=== PATIENT | male | born 1975 | race Two or more races ===

== ENCOUNTER 2022-04-25 03:23 | Inpatient (IN) | payer MEDICAID, OTHER ==
[~2022-04-25] VITALS: Ht 175.3 cm; Wt 90.0 kg
[~2022-04-25 03:23] MED LIST: FURO20 PO; METF-444 PO; POTASSIUM
[2022-04-25 04:16] LABS: BASOPHILS % (AUTO) 0.7 % (0.0-2.0); EOSINOPHILS % (AUTO) 1.9 % (1.0-6.0); HEMATOCRIT 40.3 % (41-53); HEMOGLOBIN 12.6 g/dL (13.5-17.5); LYMPHOCYTES # (AUTO) 1.7 K/uL (1.0-4.8); LYMPHOCYTES % (AUTO) 21.6 % (22.0-44.0); MEAN CORPUSCULAR HEMOGLOBIN 26.7 pg (26.0-34.0); MEAN CORPUSCULAR HGB CONC 31.3 G/dL (31.0-37.0); MEAN CORPUSCULAR VOLUME 85 fL (80-100); MONOCYTES # (AUTO) 0.8 K/uL (0.1-1.0); MONOCYTES % (AUTO) 9.9 % (2.0-9.0); NEUTROPHILS # (AUTO) 5.3 K/uL (1.8-7.7); NEUTROPHILS % (AUTO) 65.9 % (40.0-70.0); PLATELET COUNT (AUTO) 199 K/uL (150-450); RED BLOOD CELL COUNT(AUTO) 4.73 MIL/uL (4.50-5.90); RED CELL DISTRIBUTION WIDTH 20.5 % (11.5-14.5)
[2022-04-25 04:28] LABS: CALCIUM, TOTAL 8.9 mg/dL (8.8-10.5); CREATININE 1.54 mg/dL (0.60-1.30); POTASSIUM 4.4 mmol/L (3.5-5.1)
[2022-04-25 04:34] LABS: ALBUMIN 3.3 g/dL (3.4-5.0); BILIRUBIN,TOTAL 0.9 mg/dL (0.1-1.0); TOTAL PROTEIN, SERUM 7.6 g/dL (6.4-8.2)
[2022-04-25 04:36] LABS: LACTIC ACID 1.6 mmol/L (0.4-2.0)
[2022-04-25 05:20] LABS: COVID AG,FIA SOURCE NASOPHARYNGEAL
[2022-04-25] MEDS ORDERED: ASPIRIN 325 MG TABLET PO ONE (06:00)
[2022-04-25] MEDS ORDERED: FUROSEMIDE 40 MG/4 ML VIAL IVP ONE (06:00)
[2022-04-25] MEDS ORDERED: ACETAMINOPHEN 325 MG TABLET PO PRN ×2 (06:00→18:45)
[2022-04-25] MEDS ORDERED: ONDANSETRON HCL 4 MG/2 ML VIAL IVP PRN ×2 (06:00→18:45)
[2022-04-25] MEDS ORDERED: 0.9% SODIUM CHLORIDE 10 ML SYRINGE IVP PRN (06:00)
[2022-04-25] MEDS ORDERED: NITROGLYCERIN 2% (1 GM=INCH) OINTMENT PACKET TP ONE (06:00)
[2022-04-25 09:08] LABS: APPEARANCE,URINE CLEAR (CLEAR); BILIRUBIN,URINE NEGATIVE (NEGATIVE); GLUCOSE, URINE (UA) NEGATIVE (NEGATIVE); KETONES,URINE NEGATIVE (NEGATIVE); LEUKOCYTE ESTERASE ,URINE NEGATIVE (NEGATIVE); NITRATE,URINE NEGATIVE (NEGATIVE); OCCULT BLOOD,URINE NEGATIVE (NEGATIVE); PH,URINE 5.5 (5.0-8.0); PROTEIN,URINE 30-70 mg/dL (NEGATIVE); UROBILINOGEN,URINE <=1.0 mg/dL (<=1.0)
[2022-04-25 09:13] LABS: AMPHET/METH SCREEN,URINE NEGATIVE (NEGATIVE); BARBITURATE SCREEN, URINE NEGATIVE (NEGATIVE); BENZODIAZEPINES SCREEN,URINE NEGATIVE (NEGATIVE); CANNABINOID SCREEN,URINE NEGATIVE (NEGATIVE); COCAINE SCREEN,URINE NEGATIVE (NEGATIVE); METHADONE SCREEN, URINE NEGATIVE (NEGATIVE); OPIATE SCREEN,URINE NEGATIVE (NEGATIVE); PHENCYCLIDINE SCREEN,URINE NEGATIVE (NEGATIVE)
[2022-04-25 09:16] LABS: BACTERIA,URINE None Seen /HPF (None Seen); RBC,URINE None Seen /HPF (0-2); WBC,URINE None Seen /HPF (0-5)
[2022-04-25 10:44] VITALS: BP 125/87
[2022-04-25 11:00] VITALS: BP 125/87
[2022-04-25] MEDS ORDERED: INFLUENZA VIRUS VACCINE QVS 2022-23 (6MO+)/PF 60 MCG/0.5 ML SYRINGE IM. ONE (11:45)
[2022-04-25] MEDS ORDERED: PNEUMOCOCCAL VACCINE POLYVALENT 0.5 ML VIAL [PPSV23] IM. ONE (11:45)
[2022-04-25 13:28] VITALS: BP 124/87
[2022-04-25 15:26] LABS: GLUCOMETER DEV NAME(LOC) 5S.2B; GLUCOSE,POINT OF CARE 349 MG/DL (70-110)
[2022-04-25 16:05] VITALS: BP 128/83
[2022-04-25] MEDS ORDERED: MAGNESIUM HYDROXIDE SUSPENSION 30 ML UDCUP PO PRN (18:45)
[2022-04-25] MEDS ORDERED: ALBUTEROL SULFATE 2.5 MG/0.5 ML NEB SOLUTION NEB PRN (18:45)
[2022-04-25] MEDS ORDERED: IPRATROPIUM BROMIDE 0.5 MG/2.5 ML NEB SOLUTION NEB PRN (18:45)
[2022-04-25] MEDS ORDERED: BISACODYL 10 MG RECTAL RECTAL SUPPOSITORY PR PRN (18:45)
[2022-04-25] MEDS ORDERED: DEXTROSE 50%-WATER 25 GM/50 ML SYRINGE IVP PRN (18:45)
[2022-04-25] MEDS: INSULIN LISPRO 100 UNITS/ML SQ PRN ×2 (18:50→22:31)
[2022-04-25 19:57] VITALS: BP 133/98
[2022-04-25 20:41] LABS: GLUCOMETER DEV NAME(LOC) 5N.1C; GLUCOSE,POINT OF CARE 241 MG/DL (70-110)
[2022-04-25] MEDS: CARVEDILOL 6.25 MG TABLET PO SCH (22:32)
[2022-04-25] MEDS: FUROSEMIDE 40 MG/4 ML VIAL IVP SCH (22:32)
[2022-04-25] MEDS: ZOLPIDEM TARTRATE 5 MG TABLET PO PRN (23:31)
[2022-04-25] MEDS: HEPARIN SODIUM,PORCINE 5,000 UNITS/ML VIAL SQ SCH (23:31)
[2022-04-26 05:25] VITALS: BP 127/101
[2022-04-26 05:46] LABS: GLUCOMETER DEV NAME(LOC) 5N.1C; GLUCOSE,POINT OF CARE 164 MG/DL (70-110)
[2022-04-26 06:26] LABS: GLUCOMETER DEV NAME(LOC) 5S.2B; GLUCOSE,POINT OF CARE 282 MG/DL (70-110)
[2022-04-26] MEDS: INSULIN LISPRO 100 UNITS/ML SQ PRN ×4 (06:57→21:37)
[2022-04-26 08:00] VITALS: BP 129/100
[2022-04-26] MEDS: ASPIRIN 81 MG CHEWABLE TABLET PO SCH (08:43)
[2022-04-26] MEDS: PANTOPRAZOLE SODIUM 40 MG/VIAL IVP SCH (08:43)
[2022-04-26] MEDS: FUROSEMIDE 40 MG/4 ML VIAL IVP SCH ×2 (08:43→21:38)
[2022-04-26] MEDS: CARVEDILOL 6.25 MG TABLET PO SCH ×2 (08:44→21:00)
[2022-04-26] MEDS: LISINOPRIL 10 MG TABLET PO SCH (08:44)
[2022-04-26] MEDS: HEPARIN SODIUM,PORCINE 5,000 UNITS/ML VIAL SQ SCH ×3 (08:44→23:59)
[2022-04-26 12:00] VITALS: BP 126/97
[2022-04-26 16:00] VITALS: BP 128/98
[2022-04-26 20:00] VITALS: BP 118/91
[2022-04-26 21:11] LABS: GLUCOMETER DEV NAME(LOC) 5S.2B; GLUCOSE,POINT OF CARE 330 MG/DL (70-110)
[2022-04-26 21:11] LABS: GLUCOMETER DEV NAME(LOC) 5S.2B; GLUCOSE,POINT OF CARE 193 MG/DL (70-110)
[2022-04-26] MEDS: ZOLPIDEM TARTRATE 5 MG TABLET PO PRN (22:17)
[2022-04-26 22:51] LABS: GLUCOMETER DEV NAME(LOC) 5N.1C; GLUCOSE,POINT OF CARE 168 MG/DL (70-110)
[2022-04-27 00:19] VITALS: BP 130/99
[2022-04-27 04:19] VITALS: BP 123/88
[2022-04-27] MEDS: INSULIN LISPRO 100 UNITS/ML SQ PRN ×4 (05:59→22:07)
[2022-04-27 06:45] LABS: GLUCOMETER DEV NAME(LOC) 5N.1C; GLUCOSE,POINT OF CARE 204 MG/DL (70-110)
[2022-04-27 07:49] VITALS: BP 133/80
[2022-04-27] MEDS: PANTOPRAZOLE SODIUM 40 MG/VIAL IVP SCH (08:49)
[2022-04-27] MEDS: CARVEDILOL 6.25 MG TABLET PO SCH ×2 (08:50→22:03)
[2022-04-27] MEDS: HEPARIN SODIUM,PORCINE 5,000 UNITS/ML VIAL SQ SCH ×3 (08:50→23:06)
[2022-04-27] MEDS: ASPIRIN 81 MG CHEWABLE TABLET PO SCH (08:50)
[2022-04-27] MEDS: LISINOPRIL 10 MG TABLET PO SCH (08:50)
[2022-04-27] MEDS: FUROSEMIDE 40 MG/4 ML VIAL IVP SCH (08:50)
[2022-04-27 12:31] VITALS: BP 129/95
[2022-04-27 12:52] LABS: GLUCOMETER DEV NAME(LOC) 5S.2B; GLUCOSE,POINT OF CARE 308 MG/DL (70-110)
[2022-04-27] MEDS ORDERED: SPIRONOLACTONE 25 MG TABLET PO ONE (14:00)
[2022-04-27] MEDS ORDERED: GlyBURIDE 5 MG TABLET PO ONE (14:00)
[2022-04-27 14:46] LABS: BASOPHILS % (AUTO) 1.8 % (0.0-2.0); EOSINOPHILS % (AUTO) 2.5 % (1.0-6.0); HEMATOCRIT 39.6 % (41-53); HEMOGLOBIN 12.8 g/dL (13.5-17.5); LYMPHOCYTES # (AUTO) 1.3 K/uL (1.0-4.8); LYMPHOCYTES % (AUTO) 23.2 % (22.0-44.0); MEAN CORPUSCULAR HEMOGLOBIN 27.3 pg (26.0-34.0); MEAN CORPUSCULAR HGB CONC 32.2 G/dL (31.0-37.0); MEAN CORPUSCULAR VOLUME 85 fL (80-100); MONOCYTES # (AUTO) 0.7 K/uL (0.1-1.0); MONOCYTES % (AUTO) 12.6 % (2.0-9.0); NEUTROPHILS # (AUTO) 3.3 K/uL (1.8-7.7); NEUTROPHILS % (AUTO) 59.9 % (40.0-70.0); PLATELET COUNT (AUTO) 192 K/uL (150-450); RED BLOOD CELL COUNT(AUTO) 4.68 MIL/uL (4.50-5.90); RED CELL DISTRIBUTION WIDTH 19.8 % (11.5-14.5)
[2022-04-27 14:59] LABS: CALCIUM, TOTAL 8.8 mg/dL (8.8-10.5); CREATININE 1.3 mg/dL (0.60-1.30); POTASSIUM 4.6 mmol/L (3.5-5.1)
[2022-04-27 15:09] LABS: BILIRUBIN,TOTAL 0.9 mg/dL (0.1-1.0); TOTAL PROTEIN, SERUM 7.2 g/dL (6.4-8.2)
[2022-04-27 15:30] LABS: THYROID STIMULATING HORMONE 2.84 uIU/mL (0.36-3.74)
[2022-04-27 15:32] VITALS: BP 132/98
[2022-04-27 20:06] VITALS: BP 122/88
[2022-04-28 00:16] VITALS: BP_SYST 122; BP_SYST 124; BP_DIAS 87; BP_DIAS 88
[2022-04-28 00:41] LABS: GLUCOMETER DEV NAME(LOC) 5S.2B; GLUCOSE,POINT OF CARE 139 MG/DL (70-110)
[2022-04-28 00:41] LABS: GLUCOMETER DEV NAME(LOC) 5S.2B; GLUCOSE,POINT OF CARE 171 MG/DL (70-110)
[2022-04-28 05:31] VITALS: BP 122/89
[2022-04-28] MEDS: INSULIN LISPRO 100 UNITS/ML SQ PRN ×4 (06:31→20:02)
[2022-04-28 08:04] VITALS: BP 132/95
[2022-04-28] MEDS: LISINOPRIL 10 MG TABLET PO SCH (08:16)
[2022-04-28] MEDS: ASPIRIN 81 MG CHEWABLE TABLET PO SCH (08:16)
[2022-04-28] MEDS: GlyBURIDE 5 MG TABLET PO SCH ×2 (08:16→18:33)
[2022-04-28] MEDS: CARVEDILOL 6.25 MG TABLET PO SCH ×2 (08:16→19:58)
[2022-04-28] MEDS: HEPARIN SODIUM,PORCINE 5,000 UNITS/ML VIAL SQ SCH ×2 (08:17→16:45)
[2022-04-28] MEDS: PANTOPRAZOLE SODIUM 40 MG/VIAL IVP SCH (08:17)
[2022-04-28] MEDS ORDERED: SPIRONOLACTONE 25 MG TABLET PO SCH (09:00)
[2022-04-28] MEDS ORDERED: FUROSEMIDE 40 MG TABLET PO SCH (09:00)
[2022-04-28 11:40] VITALS: BP 129/87
[2022-04-28 15:39] VITALS: BP 129/90
[2022-04-28 16:46] LABS: GLUCOMETER DEV NAME(LOC) 5N.1C; GLUCOSE,POINT OF CARE 158 MG/DL (70-110)
[2022-04-28] MEDS ORDERED: ASPI81TA87 PO (18:16)
[2022-04-28] MEDS ORDERED: FURO-151 PO (18:16)
[2022-04-28] MEDS ORDERED: CARV6 PO (18:16)
[2022-04-28] MEDS ORDERED: GLYB-145 PO (18:17)
[2022-04-28] MEDS ORDERED: SPIR-37 PO (18:18)
[2022-04-28] MEDS ORDERED: LISI-893 PO (18:18)
[2022-04-29 08:27] LABS: GLUCOMETER DEV NAME(LOC) 5S.2B; GLUCOSE,POINT OF CARE 180 MG/DL (70-110)
[2022-04-29 08:27] LABS: GLUCOMETER DEV NAME(LOC) 5S.2B; GLUCOSE,POINT OF CARE 237 MG/DL (70-110)
[2022-04-29 08:27] LABS: GLUCOMETER DEV NAME(LOC) 5S.2B; GLUCOSE,POINT OF CARE 241 MG/DL (70-110)
== END 2022-04-28 20:30 | DRG 291 ==
LOC: EMS 03:26 → 5S 09:04
PROVIDERS: ADMIT Hospitalist; ATTEND Hospitalist
DX: I11.0 Hypertensive heart disease with heart failure (principal); I50.23 Acute on chronic systolic (congestive) heart failure; N17.9 Acute kidney failure, unspecified; E11.9 Type 2 diabetes mellitus without complications; Z20.822 Contact with and (suspected) exposure to COVID-19; Z87.891 Personal history of nicotine dependence
CPT/HCPCS: 71045; 80053; 80307; 81001; 82962; 83036; 83605; 83690; 83880; 84443; 84484; 85025; 87081; 93005; 93306; 99285; C9113; J1644; J1940; 36415-L1; 36415-TC